=== PATIENT | male | born 1970 | race Asian ===

== ENCOUNTER → 2020-07-04 07:06 | Outpatient (CLI) | payer OTHER, SELFPAY ==
[2020-07-04 08:18] LABS: Hemoglobin A1C% w Est Avg Glu 5.4 % (4.0-6.0)
[2020-07-04 08:38] LABS: Cholesterol 220 mg/dL (140-199); HDL Cholesterol 34 mg/dL (40-60); LDL Cholesterol Calculated 134 mg/dL (<100); Triglycerides 260 mg/dL (35-150)
== END ==
PROVIDERS: PCP Family Medicine; Referring Provider Family Medicine; Visit Provider Family Medicine
DX: R73.9 Hyperglycemia, unspecified (principal); Z13.220 Encounter for screening for lipoid disorders
CPT/HCPCS: 36415; 80061; 83036

== ENCOUNTER → 2021-09-12 07:00 | Outpatient (CLI) | payer OTHER, SELFPAY ==
[2021-09-12 08:38] LABS: Hemoglobin A1C% w Est Avg Glu 5.6 % (4.0-6.0)
[2021-09-12 08:51] LABS: Alanine Aminotransferase 25 IU/L (<50); Albumin 4.5 g/dL (3.5-5.0); Albumin Globulin Ratio 1.6 (1.0-2.8); Alkaline Phosphatase 59 U/L (38-126); Aspartate Aminotransferase 22 IU/L (17-59); BUN Creatinine Ratio 12.8 (6-22); Bilirubin Total 0.6 mg/dL (0.2-1.3); Blood Urea Nitrogen 14 mg/dL (9-20); Carbon Dioxide 29 mmol/L (22-32); Chloride 106 mmol/L (98-107); Cholesterol 188 mg/dL (140-199); Estimated Glomerular Filt Rate > 60 mL/min (>60); Globulin 2.8 g/dL (1.7-4.1); Glucose 95 mg/dL (70-100); HDL Cholesterol 30 mg/dL (40-60); HEMOLYSIS < 15 (0-50); LDL Cholesterol Calculated 109 mg/dL (<100); Sodium 141 mmol/L (137-145); Total Protein 7.3 g/dL (6.3-8.2); Triglycerides 247 mg/dL (35-150)
== END ==
PROVIDERS: PCP Family Medicine; Referring Provider Family Medicine; Visit Provider Family Medicine
DX: E78.6 Lipoprotein deficiency (principal); Z13.1 Encounter for screening for diabetes mellitus
CPT/HCPCS: 36415; 80053; 80061; 83036

== ENCOUNTER → 2021-09-14 08:50 | Outpatient (CLI) | payer OTHER, SELFPAY ==
[2021-09-18 15:51] LABS: Fecal Immunochemical Test Negative (Negative)
== END ==
PROVIDERS: PCP Family Medicine; Referring Provider Family Medicine; Visit Provider Family Medicine
DX: Z12.11 Encounter for screening for malignant neoplasm of colon (principal)
CPT/HCPCS: 82274

== ENCOUNTER → 2022-01-04 07:19 | Outpatient (CLI) | payer OTHER, SELFPAY ==
[2022-01-04 08:32] LABS: Uric Acid 8.8 mg/dL (3.5-8.5)
[2022-01-04 08:45] LABS: Hemoglobin A1C% w Est Avg Glu 5.5 % (4.0-6.0)
== END ==
PROVIDERS: PCP Family Medicine; Referring Provider Physician Assistant; Visit Provider Physician Assistant
DX: E78.1 Pure hyperglyceridemia (principal); R73.9 Hyperglycemia, unspecified; Z87.39 Personal history of other diseases of the musculoskeletal system and connective tissue
CPT/HCPCS: 36415; 83036; 84550

== ENCOUNTER → 2022-01-05 16:13 | Outpatient (CLI) | payer OTHER, SELFPAY ==
--- NOTE | 2022-01-05 16:15 | DI.RAD.S_ITS ---
PROCEDURE: XR THORACIC SPINE 3V INDICATIONS: mid thoracic back pain x 1-2 years TECHNIQUE: 3 views of the thoracic spine were acquired. COMPARISON: None. FINDINGS: Bones: Mild anterior wedge shaped height loss at T10 shows less than 5 percent height loss anteriorly. No suspicious bony lesions. 12 pairs of ribs are noted, and appear intact where visualized. Soft tissues: No paravertebral stripe thickening. IMPRESSION: Minimal T10 wedge-shaped compression fracture , uncertain age Approved by: Rubén Rodriguez M.D. on 01/05/2022 at 17:41
== END ==
PROVIDERS: PCP Family Medicine; Referring Provider Physician Assistant; Visit Provider Physician Assistant
DX: M54.6 Pain in thoracic spine (principal)
CPT/HCPCS: 72072

== ENCOUNTER → 2022-09-03 07:19 | Outpatient (CLI) | payer OTHER, SELFPAY ==
[2022-09-03 09:17] LABS: Add Manual Diff / Slide Review NO; Basophils Absolute Auto 100 /uL (0-100); Basophils Percent Auto 1.7 % (0-2); Eosinophils Absolute Auto 100 /uL (0-450); Eosinophils Percent Auto 1.9 % (2-4); Hematocrit 44.6 % (41-53); Hemoglobin 15.5 g/dL (13.5-17.5); Lymphocytes Absolute Auto 2200 /uL (1100-4500); Lymphocytes Percent Auto 35.5 % (25-40); Mean Corpuscular HGB Conc 34.7 % (30-36); Mean Corpuscular Hemoglobin 28.7 PG (26-34); Mean Corpuscular Volume 82.9 fL (80-100); Monocytes Absolute Auto 400 /uL (0-900); Monocytes Percent Auto 6.8 % (3-14); Neutrophils Absolute Auto 3300 /uL (1500-7000); Neutrophils Percent Auto 54.1 % (50-75); Platelet Count 231 X10^3/uL (150-400); Red Blood Cell Count 5.38 X10^6/uL (4.5-5.9); Red Cell Distribution Width 13.4 % (11.6-14.8); White Blood Cell Count 6.2 X10^3/uL (4.5-11.0)
[2022-09-03 09:59] LABS: Alanine Aminotransferase 34 IU/L (<50); Albumin 4.5 g/dL (3.5-5.0); Albumin Globulin Ratio 1.2 (1.0-2.8); Alkaline Phosphatase 70 U/L (38-126); Aspartate Aminotransferase 26 IU/L (17-59); BUN Creatinine Ratio 15.4 (6-22); Bilirubin Total 0.5 mg/dL (0.2-1.3); Blood Urea Nitrogen 16 mg/dL (9-20); Calcium 9.3 mg/dL (8.4-10.2); Carbon Dioxide 30 mmol/L (22-32); Chloride 101 mmol/L (98-107); Cholesterol 224 mg/dL (140-199); Estimated Glomerular Filt Rate > 60 mL/min (>60); Globulin 3.8 g/dL (1.7-4.1); Glucose 98 mg/dL (70-100); HDL Cholesterol 29 mg/dL (40-60); HEMOLYSIS < 15 (0-50); Potassium 3.8 mmol/L (3.4-5.1); Sodium 140 mmol/L (137-145); Total Protein 8.3 g/dL (6.3-8.2); Triglycerides 487 mg/dL (35-150)
[2022-09-03 10:01] LABS: Creatinine Urine Random 87.8 mg/dL
[2022-09-03 10:02] LABS: Microalbumi Creatinin Ratio Ur 9.1 ug/mg CR (<30); Microalbumin Urine Random 0.8 mg/dL (0-1.6)
[2022-09-03 10:29] LABS: TSH w/ Reflex to FT4 1.04 uIU/mL (0.47-4.68)
[2022-09-04 06:37] LABS: x Labcorp Estim. Avg Glu (eAG) 117 mg/dL (.); x Labcorp Hemoglobin A1c 5.7 % (4.8-5.6)
== END ==
PROVIDERS: PCP Family Medicine; Referring Provider Family Medicine; Visit Provider Family Medicine
DX: E78.5 Hyperlipidemia, unspecified (principal); Z13.29 Encounter for screening for other suspected endocrine disorder; Z13.1 Encounter for screening for diabetes mellitus; Z13.9 Encounter for screening, unspecified; Z87.39 Personal history of other diseases of the musculoskeletal system and connective tissue; I10 Essential (primary) hypertension; Z13.6 Encounter for screening for cardiovascular disorders; D64.9 Anemia, unspecified
CPT/HCPCS: 36415; 80053; 80061; 82043; 82570; 83036; 84443; 85025

== ENCOUNTER → 2022-09-13 19:23 | Outpatient (CLI) | payer OTHER, SELFPAY ==
--- NOTE | 2022-09-13 19:28 | DI.RAD.S_ITS ---
PROCEDURE: XR SHOULDER RT MIN 2V INDICATIONS: R shoulder pain TECHNIQUE: 3 views of the shoulder were acquired. COMPARISON: None. FINDINGS: Bones: No fractures or dislocations. There is mild lateral downsloping of the acromion. No suspicious bony lesions. Visualized ribs appear intact. Soft tissues: No suspicious soft tissue calcifications. IMPRESSION: 1. No acute bony abnormality. 2. Mild lateral downsloping of the acromion may be associated with rotator cuff tearing. Consider further evaluation with MRI. Dictated by: Rufino Zarate M.D. on 09/14/2022 at 0:02 Approved by: Rufino Zarate M.D. on 09/14/2022 at 0:03
== END ==
PROVIDERS: PCP Family Medicine; Referring Provider Family Medicine; Visit Provider Family Medicine
DX: M25.511 Pain in right shoulder (principal)
CPT/HCPCS: 73030

== ENCOUNTER → 2022-09-19 08:53 | Outpatient (CLI) | payer OTHER, SELFPAY ==
[2022-09-20 16:57] LABS: Fecal Immunochemical Test Negative (Negative)
== END ==
PROVIDERS: PCP Family Medicine; Referring Provider Family Medicine; Visit Provider Family Medicine
DX: Z12.11 Encounter for screening for malignant neoplasm of colon (principal)
CPT/HCPCS: 82274

== ENCOUNTER 2022-11-11 12:35 | Emergency (ER) | payer OTHER, SELFPAY ==
[2022-11-11] VITALS (7 sets, daily range): BP systolic 139–157; BP diastolic 86–97; PULSE 71–89; RESP 13–22; TEMP 36.4; O2SAT 96–99
--- NOTE | 2022-11-11 12:59 | DI.RAD.S_ITS ---
PROCEDURE: XR CHEST 1V INDICATIONS: chest pain TECHNIQUE: One view of the chest was acquired. COMPARISON: None. FINDINGS: Surgical changes and devices: None. Lungs and pleura: Lungs are clear. No pleural effusions or pneumothorax. Mediastinum: Mediastinal contours appear normal. Heart size is normal. Bones and chest wall: No suspicious bony lesions. Overlying soft tissues appear unremarkable. IMPRESSION: No evidence acute pulmonary process. Dictated by: Alex Banegas M.D. on 11/11/2022 at 13:45 Approved by: Alex Banegas M.D. on 11/11/2022 at 13:46
--- NOTE | 2022-11-11 13:08 | ED.GENADULT ---
HPI - General Adult General Chief complaint: Chest Pain Stated complaint: chest pressure/arythmia t-5 Time Seen by Provider: 11/11/22 12:58 Source: patient Mode of arrival: Ambulatory Limitations: language barrier History of Present Illness HPI narrative: 52-year-old male. Is [place] speaking. Does speak some Faroese. Translation line was used. Is here for evaluation of 7-10 days of was initially described as chest pressure but then further discussion it seems to be more of a shortness of breath. No coughing. It does seem to come and go. He also describes other symptoms which sound like palpitations. No nausea or vomiting. Has never had anything like this in the past. No lower extremity swelling. No nausea or vomiting. No headache. No fevers. Has not tried anything for the symptoms prior to arrival. Related Data Previous Rx's Medication Instructions Recorded ibuprofen 800 mg tablet 800 mg PO BID PRN pain #60 tabs 09/12/21 simvastatin 20 mg tablet 20 mg PO BEDTIME #90 tabs 09/13/22 Allergies Allergy/AdvReac Type Severity Reaction Status Date / Time No Known Drug Allergies Allergy Verified 11/11/22 13:16 Review of Systems Constitutional Constitutional: Reports system reviewed and no additional complaints, except as documented Cardiovascular Cardiovascular: Reports system reviewed and no additional complaints, except as documented Respiratory Respiratory: Reports system reviewed and no additional complaints, except as documented Gastrointestinal Gastrointestinal: Reports system reviewed and no additional complaints, except as documented Musculoskeletal Musculoskeletal: Reports system reviewed and no additional complaints, except as documented Integumentary/Breasts Skin/Breast: Reports system reviewed and no additional complaints, except as documented Neurologic Neurologic: Reports system reviewed and no additional complaints, except as documented Hematologic/Lymphatic On Anticoagulants: No Patient History Social History Smoking Status: Never smoker Smoking Status: Never smoker Exam Initial Vital Signs Initial Vital Signs: Vital Signs Pulse Rate 85 11/11/22 12:54 Pulse Oximetry 97 11/11/22 12:54 Const General: cooperative, comfortable and No ill appearing HENMT Head: normal to inspection and normocephalic Chest Chest: No crepitus and No tenderness Resp Effort & Inspection: normal respiratory effort and not labored Auscultation: clear to auscultation bilaterally Cardio Rate: regular rate Rhythm: regular rhythm GI Palpation: soft and No tender Skin General: no rashes or lesions noted Neuro General: patient alert, patient awake, patient oriented x3 and moves all extremities Speech: speech normal Extrem General: normal to inspection and capillary refill normal Scores HEART Score Heart Score history: Slightly Suspicious Heart Score EKG: Normal Heart Score Age: 45-64 years old Heart Score risk factors: No known risk factors Heart Score troponin: < or = to normal limit Heart Score Total: 1 Course Orders Ordered: ED Orders 11/11/22 12:59 XR chest 1V Stat EKG-12 Lead Stat 11/11/22 13:00 Complete Blood Count AUTO DIFF Stat Comprehensive Metabolic Panel Stat D Dimer Stat Lipase Stat Troponin & CK Cardiac Panel Stat Discontinued Medications Aspirin (Aspirin 81 Mg Chew Tab) 324 mg PO NOW ONE Stop: 11/11/22 13:09 Vital Signs Vital signs: Vital Signs - 8 hr 11/11/22 12:58 11/11/22 12:54 11/11/22 12:55 Temperature 97.5 F L Pulse Rate 81 85 87 Respiratory Rate 16 Blood Pressure 157/91 H Pulse Oximetry 96 97 97 Oxygen Delivery Method Room Air 11/11/22 12:55 11/11/22 13:00 11/11/22 13:00 Temperature Pulse Rate 82 Respiratory Rate 21 Blood Pressure 157/91 H 156/97 H Pulse Oximetry 97 Oxygen Delivery Method Medical Decision Making Lab Data 11/11/22 13:00 11/11/22 13:00 Labs: Lab Results 11/11/22 11/11/22 11/11/22 Range/Units 13:00 13:00 13:00 WBC 6.0 (4.5-11.0) X10^3/uL RBC 5.55 (4.5-5.9) X10^6/uL Hgb 15.8 (13.5-17.5) g/dL Hct 45.8 (41-53) % MCV 82.5 (80-100) fL MCH 28.5 (26-34) PG MCHC 34.5 (30-36) % RDW 13.1 (11.6-14.8) % Plt Count 245 (150-400) X10^3/uL Neut % (Auto) 47.7 L (50-75) % Lymph % (Auto) 41.3 H (25-40) % [place] % (Auto) 7.3 (3-14) % Eos % (Auto) 2.4 (2-4) % Baso % (Auto) 1.3 (0-2) % Neut # (Auto) 2900 (3756-9207) /uL Lymph # (Auto) 2500 (7184-7240) /uL [place] # (Auto) 400 (0-900) /uL Eos # (Auto) 100 (0-450) /uL Baso # (Auto) 100 (0-100) /uL D-Dimer (<500) ng/ml Sodium 141 (137-145) mmol/L Potassium 3.8 (3.4-5.1) mmol/L Chloride 101 (98-107) mmol/L Carbon Dioxide 28 (22-32) mmol/L BUN 15 (9-20) mg/dL Creatinine 0.99 (0.66-1.25) mg/dL Estimated GFR > 60 (>60) mL/min BUN/Creatinine Ratio 15.2 (6-22) Glucose 100 (70-100) mg/dL Calcium 9.6 (8.4-10.2) mg/dL Total Bilirubin 0.5 (0.2-1.3) mg/dL AST 32 (17-59) IU/L ALT 44 (<50) IU/L Alkaline Phosphatase 92 (38-126) U/L Total Creatine Kinase 129 (55-170) U/L CK-MB (CK-2) TNP CK-MB (CK-2) Rel Index TNP Troponin I < 0.012 (0.01-0.034) ng/mL Total Protein 8.7 H (6.3-8.2) g/dL Albumin 5.1 H (3.5-5.0) g/dL Globulin 3.6 (1.7-4.1) g/dL Albumin/Globulin Ratio 1.4 (1.0-2.8) Lipase 408 H (23-300) U/L 11/11/22 Range/Units 13:00 WBC (4.5-11.0) X10^3/uL RBC (4.5-5.9) X10^6/uL Hgb (13.5-17.5) g/dL Hct (41-53) % MCV (80-100) fL MCH (26-34) PG MCHC (30-36) % RDW (11.6-14.8) % Plt Count (150-400) X10^3/uL Neut % (Auto) (50-75) % Lymph % (Auto) (25-40) % [place] % (Auto) (3-14) % Eos % (Auto) (2-4) % Baso % (Auto) (0-2) % Neut # (Auto) (6154-8406) /uL Lymph # (Auto) (1563-2564) /uL [place] # (Auto) (0-900) /uL Eos # (Auto) (0-450) /uL Baso # (Auto) (0-100) /uL D-Dimer < 215 (<500) ng/ml Sodium (137-145) mmol/L Potassium (3.4-5.1) mmol/L Chloride (98-107) mmol/L Carbon Dioxide (22-32) mmol/L BUN (9-20) mg/dL Creatinine (0.66-1.25) mg/dL Estimated GFR (>60) mL/min BUN/Creatinine Ratio (6-22) Glucose (70-100) mg/dL Calcium (8.4-10.2) mg/dL Total Bilirubin (0.2-1.3) mg/dL AST (17-59) IU/L ALT (<50) IU/L Alkaline Phosphatase (38-126) U/L Total Creatine Kinase (55-170) U/L CK-MB (CK-2) CK-MB (CK-2) Rel Index Troponin I (0.01-0.034) ng/mL Total Protein (6.3-8.2) g/dL Albumin (3.5-5.0) g/dL Globulin (1.7-4.1) g/dL Albumin/Globulin Ratio (1.0-2.8) Lipase (23-300) U/L Imaging Data Chest x-ray: Radiologist's Impression: ROCEDURE:? XR CHEST 1V ? INDICATIONS:? chest pain ? TECHNIQUE:? One view of the chest was acquired.? ? COMPARISON:? None. ? FINDINGS:? ? Surgical changes and devices:? None.? ? Lungs and pleura:? Lungs are clear.? No pleural effusions or pneumothorax.? ? Mediastinum:? Mediastinal contours appear normal.? Heart size is normal.? ? Bones and chest wall:? No suspicious bony lesions.? Overlying soft tissues appear unremarkable.? ? IMPRESSION:? No evidence acute pulmonary process. ECG Data Attestation: I personally reviewed and interpreted this ECG as follows: Interpretation: Sinus rhythm Ventricular rate 83 Normal QRS Normal QTC No ST T wave changes MDM Narrative Medical decision making narrative: Patient has a low risk heart score. EKG is unremarkable. Chest x-ray is unremarkable. D-dimer is negative. Troponin is negative. I have low suspicion that this is ACS. I have a higher suspicion that his symptoms are related to the PVCs that he is having and being nervous about these. I had an extensive discussion with him regarding this. Will have him contact his primary doctor for a follow-up. He was given return precautions and follow-up instructions. He expressed understanding and agreement with plan. Discharge Plan Departure Patient Disposition: Home Clinical Impression: Premature ventricular contractions Activity Restrictions/Additional Instructions: I recommend that you contact your primary care doctor for a follow-up. Return to the emergency department for new or worsening symptoms. Prescriptions: No Action ibuprofen 800 mg tablet 800 mg PO BID PRN (Reason: pain) Qty: 60 0RF simvastatin 20 mg tablet 20 mg PO BEDTIME Qty: 90 3RF Referrals: Nirmala Wei MD [Primary Care Provider] - Stand Alone Forms: Patient Portal/API
[2022-11-11 13:14] LABS: Add Manual Diff / Slide Review NO; Basophils Absolute Auto 100 /uL (0-100); Basophils Percent Auto 1.3 % (0-2); Eosinophils Absolute Auto 100 /uL (0-450); Eosinophils Percent Auto 2.4 % (2-4); Hematocrit 45.8 % (41-53); Hemoglobin 15.8 g/dL (13.5-17.5); Lymphocytes Absolute Auto 2500 /uL (1100-4500); Lymphocytes Percent Auto 41.3 % (25-40); Mean Corpuscular HGB Conc 34.5 % (30-36); Mean Corpuscular Hemoglobin 28.5 PG (26-34); Mean Corpuscular Volume 82.5 fL (80-100); Monocytes Absolute Auto 400 /uL (0-900); Monocytes Percent Auto 7.3 % (3-14); Neutrophils Absolute Auto 2900 /uL (1500-7000); Neutrophils Percent Auto 47.7 % (50-75); Platelet Count 245 X10^3/uL (150-400); Red Blood Cell Count 5.55 X10^6/uL (4.5-5.9); Red Cell Distribution Width 13.1 % (11.6-14.8)
[2022-11-11 13:25] LABS: Alanine Aminotransferase 44 IU/L (<50); Albumin 5.1 g/dL (3.5-5.0); Alkaline Phosphatase 92 U/L (38-126); Aspartate Aminotransferase 32 IU/L (17-59); BUN Creatinine Ratio 15.2 (6-22); Bilirubin Total 0.5 mg/dL (0.2-1.3); Blood Urea Nitrogen 15 mg/dL (9-20); Calcium 9.6 mg/dL (8.4-10.2); Carbon Dioxide 28 mmol/L (22-32); Chloride 101 mmol/L (98-107); Creatine Kinase 129 U/L (55-170); Estimated Glomerular Filt Rate > 60 mL/min (>60); Glucose 100 mg/dL (70-100); HEMOLYSIS < 15 (0-50); Lipase 408 U/L (23-300); Potassium 3.8 mmol/L (3.4-5.1); Sodium 141 mmol/L (137-145); Total Protein 8.7 g/dL (6.3-8.2)
[2022-11-11 13:26] LABS: Albumin Globulin Ratio 1.4 (1.0-2.8); Globulin 3.6 g/dL (1.7-4.1)
[2022-11-11 13:34] LABS: D Dimer < 215 ng/ml (<500)
[2022-11-11 13:37] LABS: Troponin I < 0.012 ng/mL (0.01-0.034)
== END 2022-11-11 14:25 | disposition home or self-care (01) ==
PROVIDERS: Emergency Provider Emergency Medicine; Family Provider Family Medicine; PCP Family Medicine
DX: I49.3 Ventricular premature depolarization (principal)
CPT/HCPCS: 36415; 71045; 80053; 82550; 83690; 84484; 85025; 85379; 93005; 93010; 99284

== ENCOUNTER → 2022-12-02 07:07 | Outpatient (CLI) | payer OTHER, SELFPAY ==
[2022-12-02 08:25] LABS: Cholesterol 154 mg/dL (140-199); HDL Cholesterol 34 mg/dL (40-60); LDL Cholesterol Calculated 50 mg/dL (<100); Triglycerides 351 mg/dL (35-150)
[2022-12-03 02:07] LABS: x Labcorp Estim. Avg Glu (eAG) 111 mg/dL (.); x Labcorp Hemoglobin A1c 5.5 % (4.8-5.6)
== END ==
PROVIDERS: Family Provider Family Medicine; PCP Family Medicine; Referring Provider Physician Assistant; Visit Provider Physician Assistant
DX: E78.2 Mixed hyperlipidemia (principal); R73.01 Impaired fasting glucose
CPT/HCPCS: 36415; 80061; 83036

== ENCOUNTER 2022-12-06 12:15 | Outpatient (RCR) | payer OTHER, SELFPAY ==
--- NOTE | 2022-10-25 17:23 | PT.OIE ---
Current Diagnoses Pain in right shoulder (10/25/22) Unspecified disorder of synovium and tendon, unspecified shoulder (10/25/22) Bicipital tendinitis, right shoulder (10/25/22) Visit Care Team Role Provider Type Nirmala Wei MD Attending Provider Physician Family Provider Primary Care Provider Referring Provider Specialty: Family Practice Address: [address] [place] [address], [id number] Email: [email or web address] Physical Therapy Initial Evaluation PT-OP-A Visit Information Start: 10/25/22 16:49 Freq: Status: Active Protocol: Document 10/25/22 12:15 DCW (Rec: 10/25/22 17:23 DCW [id number]) Out-Patient Physical Therapy Visit Information Visit Information Visit Type Initial Evaluation Visit Start Time 12:15 Visit Stop Time 12:55 Total Visit Minutes 40 Visit Number 1 Number of PREDATOR CONTROL TRAPPER Visits 0 Evaluation Information Evaluation Date 10/25/22 PT-OP-B Current Condition Start: 10/25/22 16:49 Freq: Status: Active Protocol: Document 10/25/22 12:15 DCW (Rec: 10/25/22 17:23 DCW [id number]) Current Condition History of Current Condition Onset Date ~17 year history Current Complaints Recurrent R shoulder pain History of Current Condition Pt is a 52 year old male presenting with a ~17 year history of right shoulder pain . Pt reports he is unsure of the initial injury, but seems to remember he used to do a lot of dynamic stretching where he would swing his arms in full circles up over his head and back into extension for 100+ repetitions. Notes that a week or so after doing this one time, he began to have right shoulder pain. Prior to moving away, he went to see a jukebox routeman, and notes that it helped his pain for ~10 years. After moving to the , he began having increased pain ~5 years ago, and saw his PCP, who gave him some anti-inflammatories, which again seemed to help long-term. Just recently, he has had a return of the pain, and it was suggested that he get an x-ray and try some skilled PT. Pts biggest complaints are pain in his anterior right shoulder, specifically when reaching upp overhead and then reaching back into more of an extension /external rotation, as well as when sleeping and rolling onto his right shoulder, it hurts for about five minutes, then it's fine. Pt also notes an occasional popping or snapping sound in his anterior shoulder. 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 Prior Treatments and Tests R shoulder x-ray: IMPRESSION: 1. No acute bony abnormality. 2. Mild lateral downsloping of the acromion may be associated with rotator cuff tearing. Consider further evaluation with MRI. per Rufino Zarate M.D. on 2022 Treatment Goals Patient/Caregiver Goals Decrease shoulder pain PT-OP-C Subjective Start: 10/25/22 16:49 Freq: Status: Active Protocol: Document 10/25/22 12:15 DCW (Rec: 10/25/22 17:23 DCW [id number]) Patient Questionnaires Quick Dash- Upper Extremity Quick Dash UE Score 20.45% Quick Dash UE Impairment 20 to 39% Impaired (Score 20- 39) OP-PT Pain Assessment Location Right Anterior Shoulder Intensity 2 Scale Used Numeric (0 - 10) PT-OP-F Manual Assessment Start: 10/25/22 16:49 Freq: Status: Active Protocol: Document 10/25/22 12:15 DCW (Rec: 10/25/22 17:23 DCW [id number]) Manual Assessments Soft Tissue Assessment Soft Tissue Mobility Assessment Point-specific tenderness 3/4: wincing and withdraw at right bicipital groove PT-OP-K Range of Motion Start: 10/25/22 16:49 Freq: Status: Active Protocol: Document 10/25/22 12:15 DCW (Rec: 10/25/22 17:23 DCW [id number]) Shoulder Goniometric Range of Motion Shoulder Right Active Testing Position Sitting Flexion 142 Extension 50 Abduction 138 External Rotation at 0 degrees Abduction 55 PT-OP-L Special Tests Start: 10/25/22 16:49 Freq: Status: Active Protocol: Document 10/25/22 12:15 DCW (Rec: 10/25/22 17:23 DCW [id number]) Special Tests Shoulder Special Tests Yergason's Biceps Test Results Positive Right Speed's Biceps Test Results Positive Right Passive ER Rotator Cuff Test Results Negative [place] Paras Impingement Test Results Negative Grind Labrum Test Results Negative Empty Can Test Results Negative Drop Arm Rotator Cuff Test Results Negative Belly Press Test Results Negative Apprehension Test Test Results Negative AC Joint Compression Test Results Negative PT-OP-M Strength Start: 10/25/22 16:49 Freq: Status: Active Protocol: Document 10/25/22 12:15 DCW (Rec: 10/25/22 17:23 DCW [id number]) Shoulder Strength Shoulder Manual Muscle Testing Right Flexion 5 Normal Abduction (C5) 5 Normal Adduction 5 Normal External Rotation 4+ Good+ Internal Rotation 5 Normal Comments Pain with resisted ER Left Flexion 5 Normal Abduction (C5) 5 Normal Adduction 5 Normal External Rotation 5 Normal Internal Rotation 5 Normal PT-OP-Q Treatments Start: 10/25/22 16:49 Freq: Status: Active Protocol: Document 10/25/22 12:15 DCW (Rec: 10/25/22 17:23 DCW [id number]) Manual Therapy Treatment Taping Bicipital taping Body Location R LH biceps Treatment Focus LH biceps tendon stabilization Type of Tape Kinesio Tape PT-OP-T Assessment and Plan Start: 10/25/22 16:49 Freq: Status: Active Protocol: Document 10/25/22 12:15 DCW (Rec: 10/25/22 17:23 DCW [id number]) Physical Therapy Assessment Assessment Summary Assessment Pt presents with signs and symptoms consistent with bicipital tendonitis, with the potential of a torn/lax transverse ligament over his bicipital groove. Pt's pain is very point specific along his LH biceps tendon, and there is a fairly palpable popping out of his LH tendon during Yergason test and when he performs his motion of reaching up overhead and then into extension/external rotation. Yergason's/Speed's biceps testing positive today, no other special testing resulted in pain or symptoms. Overall good strength, some limitation in R shoulder ROM, flexion limited to 142? and abduction to 138?. Pt should benefit from skilled therapy focusing on shoulder stabilization, decreasing inflammation, improving pain levels, as well as use of tape and modalities. If pt does not progress as expected, may benefit from further advanced imaging in order to rule in/ out underlying soft tissue damage. Physical Therapy Plan Frequency and Duration Frequency of Treatment 1x/Week Plan of Care Start Date 10/25/22 Plan of Care End Date 12/06/22 Therapeutic Interventions Therapeutic Interventions Home Exercise Program,Joint Mobilizations,Manual Therapy, Patient/Caregiver Education, Self-Care/Home Management,Soft Tissue Mobilization,Taping, Therapeutic Activities, Therapeutic Exercises Modalities Cold Pack/Ice Massage,Hot Packs,Infrared Therapy, Iontophoresis,Ultrasound Other Therapeutic Interventions Iontophoresis with Dexamethasone 4 mg/mL Next Visit Focus/Plan Next Note Type Treatment Note Next Visit Plan Taping, shoulder stabilization /strengthening, Ionto
--- NOTE | 2022-10-25 17:26 | PT.OIE ---
Current Diagnoses Pain in right shoulder (10/25/22) Unspecified disorder of synovium and tendon, unspecified shoulder (10/25/22) Bicipital tendinitis, right shoulder (10/25/22) Visit Care Team Role Provider Type Nirmala Wei MD Attending Provider Physician Family Provider Primary Care Provider Referring Provider Specialty: Family Practice Address: [address] [place] [address], [id number] Email: [email or web address] Physical Therapy Initial Evaluation PT-OP-A Visit Information Start: 10/25/22 16:49 Freq: Status: Active Protocol: Document 10/25/22 12:15 DCW (Rec: 10/25/22 17:23 DCW [id number]) Out-Patient Physical Therapy Visit Information Visit Information Visit Type Initial Evaluation Visit Start Time 12:15 Visit Stop Time 12:55 Total Visit Minutes 40 Visit Number 1 Number of DATABASE TESTER Visits 0 Evaluation Information Evaluation Date 10/25/22 PT-OP-B Current Condition Start: 10/25/22 16:49 Freq: Status: Active Protocol: Document 10/25/22 12:15 DCW (Rec: 10/25/22 17:23 DCW [id number]) Current Condition History of Current Condition Onset Date ~17 year history Current Complaints Recurrent R shoulder pain History of Current Condition Pt is a 52 year old male presenting with a ~17 year history of right shoulder pain . Pt reports he is unsure of the initial injury, but seems to remember he used to do a lot of dynamic stretching where he would swing his arms in full circles up over his head and back into extension for 100+ repetitions. Notes that a week or so after doing this one time, he began to have right shoulder pain. Prior to moving away, he went to see a longwall headgate operator, and notes that it helped his pain for ~10 years. After moving to the , he began having increased pain ~5 years ago, and saw his PCP, who gave him some anti-inflammatories, which again seemed to help long-term. Just recently, he has had a return of the pain, and it was suggested that he get an x-ray and try some skilled PT. Pts biggest complaints are pain in his anterior right shoulder, specifically when reaching upp overhead and then reaching back into more of an extension /external rotation, as well as when sleeping and rolling onto his right shoulder, it hurts for about five minutes, then it's fine. Pt also notes an occasional popping or snapping sound in his anterior shoulder. 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 Prior Treatments and Tests R shoulder x-ray: IMPRESSION: 1. No acute bony abnormality. 2. Mild lateral downsloping of the acromion may be associated with rotator cuff tearing. Consider further evaluation with MRI. per Rufino Zarate M.D. on 2022 Treatment Goals Patient/Caregiver Goals Decrease shoulder pain PT-OP-C Subjective Start: 10/25/22 16:49 Freq: Status: Active Protocol: Document 10/25/22 12:15 DCW (Rec: 10/25/22 17:23 DCW [id number]) Patient Questionnaires Quick Dash- Upper Extremity Quick Dash UE Score 20.45% Quick Dash UE Impairment 20 to 39% Impaired (Score 20- 39) OP-PT Pain Assessment Location Right Anterior Shoulder Intensity 2 Scale Used Numeric (0 - 10) PT-OP-F Manual Assessment Start: 10/25/22 16:49 Freq: Status: Active Protocol: Document 10/25/22 12:15 DCW (Rec: 10/25/22 17:23 DCW [id number]) Manual Assessments Soft Tissue Assessment Soft Tissue Mobility Assessment Point-specific tenderness 3/4: wincing and withdraw at right bicipital groove PT-OP-K Range of Motion Start: 10/25/22 16:49 Freq: Status: Active Protocol: Document 10/25/22 12:15 DCW (Rec: 10/25/22 17:23 DCW [id number]) Shoulder Goniometric Range of Motion Shoulder Right Active Testing Position Sitting Flexion 142 Extension 50 Abduction 138 External Rotation at 0 degrees Abduction 55 PT-OP-L Special Tests Start: 10/25/22 16:49 Freq: Status: Active Protocol: Document 10/25/22 12:15 DCW (Rec: 10/25/22 17:23 DCW [id number]) Special Tests Shoulder Special Tests Yergason's Biceps Test Results Positive Right Speed's Biceps Test Results Positive Right Passive ER Rotator Cuff Test Results Negative [place] Paras Impingement Test Results Negative Grind Labrum Test Results Negative Empty Can Test Results Negative Drop Arm Rotator Cuff Test Results Negative Belly Press Test Results Negative Apprehension Test Test Results Negative AC Joint Compression Test Results Negative PT-OP-M Strength Start: 10/25/22 16:49 Freq: Status: Active Protocol: Document 10/25/22 12:15 DCW (Rec: 10/25/22 17:23 DCW [id number]) Shoulder Strength Shoulder Manual Muscle Testing Right Flexion 5 Normal Abduction (C5) 5 Normal Adduction 5 Normal External Rotation 4+ Good+ Internal Rotation 5 Normal Comments Pain with resisted ER Left Flexion 5 Normal Abduction (C5) 5 Normal Adduction 5 Normal External Rotation 5 Normal Internal Rotation 5 Normal PT-OP-Q Treatments Start: 10/25/22 16:49 Freq: Status: Active Protocol: Document 10/25/22 12:15 DCW (Rec: 10/25/22 17:23 DCW [id number]) Manual Therapy Treatment Taping Bicipital taping Body Location R LH biceps Treatment Focus LH biceps tendon stabilization Type of Tape Kinesio Tape PT-OP-T Assessment and Plan Start: 10/25/22 16:49 Freq: Status: Active Protocol: Document 10/25/22 12:15 DCW (Rec: 10/25/22 17:23 DCW [id number]) Physical Therapy Assessment Goals Two Impairment Pt experiences pain in right shoulder when rolling onto right side Benzene Washer Goal (LTG) Pt to exhibit ability to lay on right shoulder with no pain in order to improve ability to sleep at night LTG Duration 12/06/22 One Impairment Pt does not have an appropriate home exercise program Short Term Goal (STG) Pt to be independent and compliant with an appropriate HEP STG Duration 11/24/22 Assessment Summary Assessment Pt presents with signs and symptoms consistent with bicipital tendonitis, with the potential of a torn/lax transverse ligament over his bicipital groove. Pt's pain is very point specific along his LH biceps tendon, and there is a fairly palpable popping out of his LH tendon during Yergason test and when he performs his motion of reaching up overhead and then into extension/external rotation. Yergason's/Speed's biceps testing positive today, no other special testing resulted in pain or symptoms. Overall good strength, some limitation in R shoulder ROM, flexion limited to 142? and abduction to 138?. Pt should benefit from skilled therapy focusing on shoulder stabilization, decreasing inflammation, improving pain levels, as well as use of tape and modalities. If pt does not progress as expected, may benefit from further advanced imaging in order to rule in/ out underlying soft tissue damage. Physical Therapy Plan Frequency and Duration Frequency of Treatment 1x/Week Plan of Care Start Date 10/25/22 Plan of Care End Date 12/06/22 Therapeutic Interventions Therapeutic Interventions Home Exercise Program,Joint Mobilizations,Manual Therapy, Patient/Caregiver Education, Self-Care/Home Management,Soft Tissue Mobilization,Taping, Therapeutic Activities, Therapeutic Exercises Modalities Cold Pack/Ice Massage,Hot Packs,Infrared Therapy, Iontophoresis,Ultrasound Other Therapeutic Interventions Iontophoresis with Dexamethasone 4 mg/mL Next Visit Focus/Plan Next Note Type Treatment Note Next Visit Plan Taping, shoulder stabilization /strengthening, Ionto
--- NOTE | 2022-10-25 17:27 | PT.OPPOC ---
Physical, Occupational & Speech Therapy At [facility] Current Diagnoses Pain in right shoulder (10/25/22) Unspecified disorder of synovium and tendon, unspecified shoulder (10/25/22) Bicipital tendinitis, right shoulder (10/25/22) Visit Care Team Role Provider Type Nirmala Wei MD Attending Provider Physician Family Provider Primary Care Provider Referring Provider Specialty: Family Practice Address: [address] [place] [address], [facility] [place], [address] Email: [email or web address] Plan Of Care PT-OP-T Assessment and Plan Start: 10/25/22 16:49 Freq: Status: Active Protocol: Document 10/25/22 12:15 DCW (Rec: 10/25/22 17:23 DCW [id number]) Physical Therapy Assessment Goals Two Impairment Pt experiences pain in right shoulder when rolling onto right side Slag Dumper Goal (LTG) Pt to exhibit ability to lay on right shoulder with no pain in order to improve ability to sleep at night LTG Duration 12/06/22 One Impairment Pt does not have an appropriate home exercise program Short Term Goal (STG) Pt to be independent and compliant with an appropriate HEP STG Duration 11/24/22 Assessment Summary Assessment Pt presents with signs and symptoms consistent with bicipital tendonitis, with the potential of a torn/lax transverse ligament over his bicipital groove. Pt's pain is very point specific along his LH biceps tendon, and there is a fairly palpable popping out of his LH tendon during Yergason test and when he performs his motion of reaching up overhead and then into extension/external rotation. Yergason's/Speed's biceps testing positive today, no other special testing resulted in pain or symptoms. Overall good strength, some limitation in R shoulder ROM, flexion limited to 142? and abduction to 138?. Pt should benefit from skilled therapy focusing on shoulder stabilization, decreasing inflammation, improving pain levels, as well as use of tape and modalities. If pt does not progress as expected, may benefit from further advanced imaging in order to rule in/ out underlying soft tissue damage. Physical Therapy Plan Frequency and Duration Frequency of Treatment 1x/Week Plan of Care Start Date 10/25/22 Plan of Care End Date 12/06/22 Therapeutic Interventions Therapeutic Interventions Home Exercise Program,Joint Mobilizations,Manual Therapy, Patient/Caregiver Education, Self-Care/Home Management,Soft Tissue Mobilization,Taping, Therapeutic Activities, Therapeutic Exercises Modalities Cold Pack/Ice Massage,Hot Packs,Infrared Therapy, Iontophoresis,Ultrasound Other Therapeutic Interventions Iontophoresis with Dexamethasone 4 mg/mL Next Visit Focus/Plan Next Note Type Treatment Note Next Visit Plan Taping, shoulder stabilization /strengthening, Ionto Plan of Care Dates Plan of Care Start Date 10/25/22 Plan of Care End Date 12/06/22 Electronically Signed by: Wil Metcalf, PT 10/25/22 3710 If you are in agreement with this Plan of Care, please return a signed and dated copy. I have reviewed this Plan of Care and certify that the skilled therapy services above are required to meet the patient?s needs. Physician Signature Date Printed Name and Credentials Clinical Instructor Signature Printed Name and Credentials
--- NOTE | 2022-11-11 12:34 | PT-OP ANOTE ---
Pt's PCP notified this PT office of pt having chest symptoms per , and PCP recommendation for pt to go to Emergency for further evaluation. S/w pt (Arabic is second language) who describes episodes of shortness of breath since at least five days ago happening multiple times a day, and decreasing with meditation, but happened twice today. No symptoms at this moment - pt agrees to Net Repairer escort to ER. PT appointment cancelled accordingly. Pt did describe removing KT tape after 3 days due to 'itching but increased shoulder pain following removal. He denies any warmth, redness, or rash.
--- NOTE | 2022-11-11 15:33 | PT.OTN ---
Current Diagnoses Pain in right shoulder (11/11/22) Unspecified disorder of synovium and tendon, unspecified shoulder (11/11/22) Bicipital tendinitis, right shoulder (11/11/22) Physical Therapy Treatment Note PT-OP-A Visit Information Start: 10/25/22 16:49 Freq: Status: Active Protocol: Document 11/11/22 14:50 DCW (Rec: 11/11/22 15:32 DCW [id number]) Out-Patient Physical Therapy Visit Information Visit Information Visit Type Treatment Note Visit Start Time 14:50 Visit Stop Time 15:30 Total Visit Minutes 40 Visit Number 2 Number of VOCATIONAL REHAB CONSULTANT Visits 0 Evaluation Information Evaluation Date 10/25/22 PT-OP-B Current Condition Start: 10/25/22 16:49 Freq: Status: Active Protocol: Document 10/25/22 12:15 DCW (Rec: 10/25/22 17:23 DCW [id number]) Current Condition History of Current Condition Onset Date ~17 year history Current Complaints Recurrent R shoulder pain History of Current Condition Pt is a 52 year old male presenting with a ~17 year history of right shoulder pain . Pt reports he is unsure of the initial injury, but seems to remember he used to do a lot of dynamic stretching where he would swing his arms in full circles up over his head and back into extension for 100+ repetitions. Notes that a week or so after doing this one time, he began to have right shoulder pain. Prior to moving away, he went to see a laboratory technology teacher, and notes that it helped his pain for ~10 years. After moving to the , he began having increased pain ~5 years ago, and saw his PCP, who gave him some anti-inflammatories, which again seemed to help long-term. Just recently, he has had a return of the pain, and it was suggested that he get an x-ray and try some skilled PT. Pts biggest complaints are pain in his anterior right shoulder, specifically when reaching upp overhead and then reaching back into more of an extension /external rotation, as well as when sleeping and rolling onto his right shoulder, it hurts for about five minutes, then it's fine. Pt also notes an occasional popping or snapping sound in his anterior shoulder. 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 Prior Treatments and Tests R shoulder x-ray: IMPRESSION: 1. No acute bony abnormality. 2. Mild lateral downsloping of the acromion may be associated with rotator cuff tearing. Consider further evaluation with MRI. per Rufino Zarate M.D. on 2022 Treatment Goals Patient/Caregiver Goals Decrease shoulder pain PT-OP-C Subjective Start: 10/25/22 16:49 Freq: Status: Active Protocol: Document 11/11/22 14:50 DCW (Rec: 11/11/22 15:33 DCW [id number]) OP-PT Subjective Patient Comments Patient Comments Pt reports he felt better while wearing the K-tape, but it began to get itchy, so he removed it. PT-OP-F Manual Assessment Start: 10/25/22 16:49 Freq: Status: Active Protocol: Document 10/25/22 12:15 DCW (Rec: 10/25/22 17:23 DCW [id number]) Manual Assessments Soft Tissue Assessment Soft Tissue Mobility Assessment Point-specific tenderness 3/4: wincing and withdraw at right bicipital groove PT-OP-K Range of Motion Start: 10/25/22 16:49 Freq: Status: Active Protocol: Document 10/25/22 12:15 DCW (Rec: 10/25/22 17:23 DCW [id number]) Shoulder Goniometric Range of Motion Shoulder Right Active Testing Position Sitting Flexion 142 Extension 50 Abduction 138 External Rotation at 0 degrees Abduction 55 PT-OP-L Special Tests Start: 10/25/22 16:49 Freq: Status: Active Protocol: Document 10/25/22 12:15 DCW (Rec: 10/25/22 17:23 DCW [id number]) Special Tests Shoulder Special Tests Yergason's Biceps Test Results Positive Right Speed's Biceps Test Results Positive Right Passive ER Rotator Cuff Test Results Negative [place] Impingement Test Results Negative Grind Labrum Test Results Negative Empty Can Test Results Negative Drop Arm Rotator Cuff Test Results Negative Belly Press Test Results Negative Apprehension Test Test Results Negative AC Joint Compression Test Results Negative PT-OP-M Strength Start: 10/25/22 16:49 Freq: Status: Active Protocol: Document 10/25/22 12:15 DCW (Rec: 10/25/22 17:23 DCW [id number]) Shoulder Strength Shoulder Manual Muscle Testing Right Flexion 5 Normal Abduction (C5) 5 Normal Adduction 5 Normal External Rotation 4+ Good+ Internal Rotation 5 Normal Comments Pain with resisted ER Left Flexion 5 Normal Abduction (C5) 5 Normal Adduction 5 Normal External Rotation 5 Normal Internal Rotation 5 Normal PT-OP-Q Treatments Start: 10/25/22 16:49 Freq: Status: Active Protocol: Document 11/11/22 14:50 DCW (Rec: 11/11/22 15:32 DCW [id number]) Cardio Equipment Upper Body Ergometer (UBE) Duration (Minutes) 2 RPM 60 Seat Position 10 Height 2.5 Other R UE only d/t recent IV site on L arm Therapeutic Exercises Sitting Exercises Biceps curls Sitting Exercise Name Biceps curl Side right Resistance Green T-band ER/IR Sitting Exercise Name 90/90 ER/IR holding weighted ball Side right Resistance 3.3 lb Red ball Flexibar Sitting Exercise Name Sup/Pro /c flexibar Side bilateral Resistance Red Pro/Supination Sitting Exercise Name Pronation/Supination Side right Resistance Hammer Standing Exercises Biceps curls Standing Exercise Name Eccentric curl->Normal Curl Side right Resistance 5#->7# Manual Therapy Treatment Soft Tissue Mobilization LH Biceps Body Location LH Biceps tendon Mobilization Type Cross-Friction,Strumming Intensity/Depth Superficial Joint Mobilizations GH Joint R GH Direction Inferior Grade III PT-OP-R Modalities Start: 11/11/22 15:32 Freq: Status: Active Protocol: Document 11/11/22 14:50 DCW (Rec: 11/11/22 15:33 [facility] [id number]) Iontophoresis Treatment Right Anterior Shoulder Treatment Medication Dexamethasone (-) Medication Amount (mL) (ml) 1 Medication Dosage 4 mg/mL Treatment Polarity Negative to Negative Active Electrode Placement Bicipital groove Treatment Duration (minutes) 3 PT-OP-T Assessment and Plan Start: 10/25/22 16:49 Freq: Status: Active Protocol: Document 11/11/22 14:50 DCW (Rec: 11/11/22 15:32 [facility] [id number]) Physical Therapy Assessment Goals Two Impairment Pt experiences pain in right shoulder when rolling onto right side Care Home Goal (LTG) Pt to exhibit ability to lay on right shoulder with no pain in order to improve ability to sleep at night LTG Duration 12/06/22 One Impairment Pt does not have an appropriate home exercise program Short Term Goal (STG) Pt to be independent and compliant with an appropriate HEP STG Duration 11/24/22 Assessment Summary Assessment Pt tolerated most activities today without pain, but did not increased pain with pronation/supination activities, as well as increased overall soreness after STM. Trial of ionto today, pt instructed to let therapist know how he felt after it comes off. Physical Therapy Plan Frequency and Duration Frequency of Treatment 1x/Week Plan of Care Start Date 10/25/22 Plan of Care End Date 12/06/22 Therapeutic Interventions Therapeutic Interventions Home Exercise Program,Joint Mobilizations,Manual Therapy, Patient/Caregiver Education, Self-Care/Home Management,Soft Tissue Mobilization,Taping, Therapeutic Activities, Therapeutic Exercises Modalities Cold Pack/Ice Massage,Hot Packs,Infrared Therapy, Iontophoresis,Ultrasound Other Therapeutic Interventions Iontophoresis with Dexamethasone 4 mg/mL Next Visit Focus/Plan Next Note Type Treatment Note Next Visit Plan Taping, shoulder stabilization /strengthening, Ionto
--- NOTE | 2022-11-22 15:34 | PT.OTN ---
Current Diagnoses Pain in right shoulder (11/22/22) Unspecified disorder of synovium and tendon, unspecified shoulder (11/22/22) Bicipital tendinitis, right shoulder (11/22/22) Physical Therapy Treatment Note PT-OP-A Visit Information Start: 10/25/22 16:49 Freq: Status: Active Protocol: Document 11/22/22 14:18 NBM (Rec: 11/22/22 15:33 NBM [id number]) Out-Patient Physical Therapy Visit Information Visit Information Visit Type Treatment Note Visit Note Pt's translation jennifer used for Urdu<>[place] Islander for pain description. Visit Start Time 14:18 Visit Stop Time 15:03 Total Visit Minutes 45 Visit Number 3 Number of PSYCHIATRY PHYSICIAN Visits 1 Evaluation Information Evaluation Date 10/25/22 PT-OP-B Current Condition Start: 10/25/22 16:49 Freq: Status: Active Protocol: Document 10/25/22 12:15 DCW (Rec: 10/25/22 17:23 DCW [id number]) Current Condition History of Current Condition Onset Date ~17 year history Current Complaints Recurrent R shoulder pain History of Current Condition Pt is a 52 year old male presenting with a ~17 year history of right shoulder pain . Pt reports he is unsure of the initial injury, but seems to remember he used to do a lot of dynamic stretching where he would swing his arms in full circles up over his head and back into extension for 100+ repetitions. Notes that a week or so after doing this one time, he began to have right shoulder pain. Prior to moving away, he went to see a nursing scheduler, and notes that it helped his pain for ~10 years. After moving to the , he began having increased pain ~5 years ago, and saw his PCP, who gave him some anti-inflammatories, which again seemed to help long-term. Just recently, he has had a return of the pain, and it was suggested that he get an x-ray and try some skilled PT. Pts biggest complaints are pain in his anterior right shoulder, specifically when reaching upp overhead and then reaching back into more of an extension /external rotation, as well as when sleeping and rolling onto his right shoulder, it hurts for about five minutes, then it's fine. Pt also notes an occasional popping or snapping sound in his anterior shoulder. 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 Prior Treatments and Tests R shoulder x-ray: IMPRESSION: 1. No acute bony abnormality. 2. Mild lateral downsloping of the acromion may be associated with rotator cuff tearing. Consider further evaluation with MRI. per Rufino Zarate M.D. on 2022 Treatment Goals Patient/Caregiver Goals Decrease shoulder pain PT-OP-C Subjective Start: 10/25/22 16:49 Freq: Status: Active Protocol: Document 11/22/22 14:18 NBM (Rec: 11/22/22 15:33 NBM [id number]) OP-PT Subjective Patient Comments Patient Comments Pt reports overall improvement but still discomfort at times . He states R shoulder pain is 10% what it was - dull ache . He thinks the ionto patch helped but his shoulder was sore after he took it off - he thinks from the hands on. He uses Icy Hot cream for pain. He thinks the heart symptoms were from stress and strong coffee but says the Dr. says his heart is okay. PT-OP-F Manual Assessment Start: 10/25/22 16:49 Freq: Status: Active Protocol: Document 10/25/22 12:15 DCW (Rec: 10/25/22 17:23 DCW [id number]) Manual Assessments Soft Tissue Assessment Soft Tissue Mobility Assessment Point-specific tenderness 3/4: wincing and withdraw at right bicipital groove PT-OP-K Range of Motion Start: 10/25/22 16:49 Freq: Status: Active Protocol: Document 10/25/22 12:15 DCW (Rec: 10/25/22 17:23 DCW [id number]) Shoulder Goniometric Range of Motion Shoulder Right Active Testing Position Sitting Flexion 142 Extension 50 Abduction 138 External Rotation at 0 degrees Abduction 55 PT-OP-L Special Tests Start: 10/25/22 16:49 Freq: Status: Active Protocol: Document 10/25/22 12:15 DCW (Rec: 10/25/22 17:23 DCW [id number]) Special Tests Shoulder Special Tests Yergason's Biceps Test Results Positive Right Speed's Biceps Test Results Positive Right Passive ER Rotator Cuff Test Results Negative [place] Impingement Test Results Negative Grind Labrum Test Results Negative Empty Can Test Results Negative Drop Arm Rotator Cuff Test Results Negative Belly Press Test Results Negative Apprehension Test Test Results Negative AC Joint Compression Test Results Negative PT-OP-M Strength Start: 10/25/22 16:49 Freq: Status: Active Protocol: Document 10/25/22 12:15 DCW (Rec: 10/25/22 17:23 DCW [id number]) Shoulder Strength Shoulder Manual Muscle Testing Right Flexion 5 Normal Abduction (C5) 5 Normal Adduction 5 Normal External Rotation 4+ Good+ Internal Rotation 5 Normal Comments Pain with resisted ER Left Flexion 5 Normal Abduction (C5) 5 Normal Adduction 5 Normal External Rotation 5 Normal Internal Rotation 5 Normal PT-OP-Q Treatments Start: 10/25/22 16:49 Freq: Status: Active Protocol: Document 11/22/22 14:18 NBM (Rec: 11/22/22 15:33 NBM [id number]) Cardio Equipment Upper Body Ergometer (UBE) Duration (Minutes) 4 RPM 60 Seat Position 12 Height 2.5 Other 3min forward, 1 min backward Therapeutic Exercises Sitting Exercises Biceps curls Sitting Exercise Name Biceps curl sitting>standing Side right Resistance Green T-band Reps/Minutes x10 ea Comments standing added to HEP ER/IR Sitting Exercise Name 90/90 ER/IR holding weighted ball Side right Resistance 3.3 lb Red ball Reps/Minutes x10 Comments no pain but discomfort with fatigue Flexibar Sitting Exercise Name Sup/Pro /c flexibar Side bilateral Resistance Red Reps/Minutes x10 ea Comments cues for elbows close to body Pro/Supination Sitting Exercise Name Pronation/Supination Side right Resistance Hammer Reps/Minutes x10 Comments progressed handgrip to low on handle Standing Exercises Biceps curls Standing Exercise Name Normal Curl Side right Resistance 7# Reps/Minutes x10 Manual Therapy Treatment Soft Tissue Mobilization LH Biceps Body Location LH Biceps tendon Mobilization Type Cross-Friction,Strumming Intensity/Depth Superficial Body Position Hooklying Comments towel roll support under UE Joint Mobilizations GH Joint R GH Direction Inferior, posterior Grade II Body Position Hooklying Comments positive feedback response Self-Care/Home Management Treatment Education Patient Education Home Exercise Program,Pain Management Other Education HEP: standing resisted biceps curls - HO and green TB given. -Educated pt on option of ice for inflammation and pain management. PT-OP-R Modalities Start: 11/11/22 15:32 Freq: Status: Active Protocol: Document 11/22/22 14:18 NBM (Rec: 11/22/22 15:33 [facility] [id number]) Hot Pack/Cold Pack Treatment Cold Pack Location R shoulder Patient Position Hooklying Treatment Duration (minutes) 8 Patient Tolerance Good Comments cervical size PT-OP-T Assessment and Plan Start: 10/25/22 16:49 Freq: Status: Active Protocol: Document 11/22/22 14:18 NBM (Rec: 11/22/22 15:33 [facility] [id number]) Physical Therapy Assessment Goals Two Impairment Pt experiences pain in right shoulder when rolling onto right side Residential Goal (LTG) Pt to exhibit ability to lay on right shoulder with no pain in order to improve ability to sleep at night LTG Duration 12/06/22 One Impairment Pt does not have an appropriate home exercise program Short Term Goal (STG) Pt to be independent and compliant with an appropriate HEP 11/22/22: standing resisted biceps curls - HO and Green Tb given. STG Duration 11/24/22 Assessment Summary Assessment Dong demonstrates progress and tolerates activities today without pain, as with 7# x10 biceps curls progressed from 5 # last visit. He does experience pinpoint right shoulder discomfort in bicipital groove with fatigue with shoulder ER/IR and supination/pronation w/ flexibar, but emphasizes no pain. He requires occasional cues for posture with ex's. Positive feedback response to R shoulder manual therapy. Educated pt on option of ice for pain management. HEP: standing resisted biceps curls - HO and green TB given. Pt's translation jennifer used for pain description for Urdu<> [place]er. Physical Therapy Plan Frequency and Duration Frequency of Treatment 1x/Week Plan of Care Start Date 10/25/22 Plan of Care End Date 12/06/22 Therapeutic Interventions Therapeutic Interventions Home Exercise Program,Joint Mobilizations,Manual Therapy, Patient/Caregiver Education, Self-Care/Home Management,Soft Tissue Mobilization,Taping, Therapeutic Activities, Therapeutic Exercises Modalities Cold Pack/Ice Massage,Hot Packs,Infrared Therapy, Iontophoresis,Ultrasound Other Therapeutic Interventions Iontophoresis with Dexamethasone 4 mg/mL Next Visit Focus/Plan Next Note Type Treatment Note Next Visit Plan Taping, shoulder stabilization /strengthening, Ionto
--- NOTE | 2022-11-29 14:13 | PT.OTN ---
Current Diagnoses Pain in right shoulder (11/29/22) Unspecified disorder of synovium and tendon, unspecified shoulder (11/29/22) Bicipital tendinitis, right shoulder (11/29/22) Physical Therapy Treatment Note PT-OP-A Visit Information Start: 10/25/22 16:49 Freq: Status: Active Protocol: Document 11/29/22 13:30 DCW (Rec: 11/29/22 14:13 DCW [id number]) Out-Patient Physical Therapy Visit Information Visit Information Visit Type Treatment Note Visit Start Time 13:30 Visit Stop Time 14:15 Total Visit Minutes 45 Visit Number 4 Number of TYPE MAPPER Visits 0 Evaluation Information Evaluation Date 10/25/22 PT-OP-B Current Condition Start: 10/25/22 16:49 Freq: Status: Active Protocol: Document 10/25/22 12:15 DCW (Rec: 10/25/22 17:23 DCW [id number]) Current Condition History of Current Condition Onset Date ~17 year history Current Complaints Recurrent R shoulder pain History of Current Condition Pt is a 52 year old male presenting with a ~17 year history of right shoulder pain . Pt reports he is unsure of the initial injury, but seems to remember he used to do a lot of dynamic stretching where he would swing his arms in full circles up over his head and back into extension for 100+ repetitions. Notes that a week or so after doing this one time, he began to have right shoulder pain. Prior to moving away, he went to see a chief controller tower, and notes that it helped his pain for ~10 years. After moving to the , he began having increased pain ~5 years ago, and saw his PCP, who gave him some anti-inflammatories, which again seemed to help long-term. Just recently, he has had a return of the pain, and it was suggested that he get an x-ray and try some skilled PT. Pts biggest complaints are pain in his anterior right shoulder, specifically when reaching upp overhead and then reaching back into more of an extension /external rotation, as well as when sleeping and rolling onto his right shoulder, it hurts for about five minutes, then it's fine. Pt also notes an occasional popping or snapping sound in his anterior shoulder. 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 Prior Treatments and Tests R shoulder x-ray: IMPRESSION: 1. No acute bony abnormality. 2. Mild lateral downsloping of the acromion may be associated with rotator cuff tearing. Consider further evaluation with MRI. per Rufino Zarate M.D. on 2022 Treatment Goals Patient/Caregiver Goals Decrease shoulder pain PT-OP-C Subjective Start: 10/25/22 16:49 Freq: Status: Active Protocol: Document 11/29/22 13:30 DCW (Rec: 11/29/22 14:13 DCW [id number]) OP-PT Subjective Patient Comments Patient Comments Pt reports his shoulder feels much better, but is still sore . PT-OP-F Manual Assessment Start: 10/25/22 16:49 Freq: Status: Active Protocol: Document 10/25/22 12:15 DCW (Rec: 10/25/22 17:23 DCW [id number]) Manual Assessments Soft Tissue Assessment Soft Tissue Mobility Assessment Point-specific tenderness 3/4: wincing and withdraw at right bicipital groove PT-OP-K Range of Motion Start: 10/25/22 16:49 Freq: Status: Active Protocol: Document 10/25/22 12:15 DCW (Rec: 10/25/22 17:23 DCW [id number]) Shoulder Goniometric Range of Motion Shoulder Right Active Testing Position Sitting Flexion 142 Extension 50 Abduction 138 External Rotation at 0 degrees Abduction 55 PT-OP-L Special Tests Start: 10/25/22 16:49 Freq: Status: Active Protocol: Document 10/25/22 12:15 DCW (Rec: 10/25/22 17:23 DCW [id number]) Special Tests Shoulder Special Tests Yergason's Biceps Test Results Positive Right Speed's Biceps Test Results Positive Right Passive ER Rotator Cuff Test Results Negative [place] Impingement Test Results Negative Grind Labrum Test Results Negative Empty Can Test Results Negative Drop Arm Rotator Cuff Test Results Negative Belly Press Test Results Negative Apprehension Test Test Results Negative AC Joint Compression Test Results Negative PT-OP-M Strength Start: 10/25/22 16:49 Freq: Status: Active Protocol: Document 10/25/22 12:15 DCW (Rec: 10/25/22 17:23 DCW [id number]) Shoulder Strength Shoulder Manual Muscle Testing Right Flexion 5 Normal Abduction (C5) 5 Normal Adduction 5 Normal External Rotation 4+ Good+ Internal Rotation 5 Normal Comments Pain with resisted ER Left Flexion 5 Normal Abduction (C5) 5 Normal Adduction 5 Normal External Rotation 5 Normal Internal Rotation 5 Normal PT-OP-Q Treatments Start: 10/25/22 16:49 Freq: Status: Active Protocol: Document 11/29/22 13:30 DCW (Rec: 11/29/22 14:13 NYW [id number]) Cardio Equipment Upper Body Ergometer (UBE) Duration (Minutes) 4 RPM 60 Seat Position 10 Height 3 Other 2' fwd, 2' bkwd Therapeutic Exercises Sitting Exercises ER/IR Sitting Exercise Name 90/90 ER/IR holding weighted ball Side right Resistance 4.4 lb green ball Reps/Minutes x10 Comments no pain but discomfort with fatigue Flexibar Sitting Exercise Name Sup/Pro, Twisting Side bilateral Resistance Blue flexibar Reps/Minutes x10 ea Pro/Supination Sitting Exercise Name Pronation/Supination Side right Resistance Hammer /c 1# weight Reps/Minutes x10 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 Standing Exercises Horizontal Abduction Standing Exercise Name Horizontal Abduction Side bilateral Resistance Green t-band Shoulder Abduction Standing Exercise Name Abduction Side right Resistance Green t-band Shoulder Flexion Standing Exercise Name Flexion Side right Resistance Green t-band Biceps curls Standing Exercise Name Curl/Reverse Curl Side right Resistance 10# Reps/Minutes x10 Manual Therapy Treatment Soft Tissue Mobilization LH Biceps Body Location LH Biceps tendon Mobilization Type Cross-Friction,Strumming Intensity/Depth Superficial Body Position Sitting Joint Mobilizations GH Joint R GH Direction Inferior Grade III Body Position Sitting PT-OP-R Modalities Start: 11/11/22 15:32 Freq: Status: Active Protocol: Document 11/29/22 13:30 DCW (Rec: 11/29/22 14:13 [facility] [id number]) Iontophoresis Treatment Right Anterior Shoulder Treatment Medication Dexamethasone (-) Medication Amount (mL) (ml) 1 Medication Dosage 10 mg/mL Treatment Polarity Negative to Negative Active Electrode Placement Bicipital groove Treatment Duration (minutes) 3 PT-OP-T Assessment and Plan Start: 10/25/22 16:49 Freq: Status: Active Protocol: Document 11/29/22 13:30 DCW (Rec: 11/29/22 14:13 [facility] [id number]) Physical Therapy Assessment Goals Two Impairment Pt experiences pain in right shoulder when rolling onto right side 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 STG Duration 11/24/22 Assessment Summary Assessment Pt able to tolerate nearly all activities today with zero or minimal pain, noted some mild soreness with addition of horizontal abduction exercise. Showing good overall improvement. Physical Therapy Plan Frequency and Duration Frequency of Treatment 1x/Week Plan of Care Start Date 10/25/22 Plan of Care End Date 12/06/22 Therapeutic Interventions Therapeutic Interventions Home Exercise Program,Joint Mobilizations,Manual Therapy, Patient/Caregiver Education, Self-Care/Home Management,Soft Tissue Mobilization,Taping, Therapeutic Activities, Therapeutic Exercises Modalities Cold Pack/Ice Massage,Hot Packs,Infrared Therapy, Iontophoresis,Ultrasound Other Therapeutic Interventions Iontophoresis with Dexamethasone 4 mg/mL Next Visit Focus/Plan Next Note Type Treatment Note Next Visit Plan Taping, shoulder stabilization /strengthening, Ionto
--- NOTE | 2022-12-06 12:57 | PT.OTN ---
Current Diagnoses Pain in right shoulder (12/06/22) Unspecified disorder of synovium and tendon, unspecified shoulder (12/06/22) Bicipital tendinitis, right shoulder (12/06/22) Physical Therapy Treatment Note PT-OP-A Visit Information Start: 10/25/22 16:49 Freq: Status: Active Protocol: Document 12/06/22 12:15 DCW (Rec: 12/06/22 12:57 DCW [id number]) Out-Patient Physical Therapy Visit Information Visit Information Visit Type Discharge Summary Visit Start Time 12:15 Visit Stop Time 13:00 Total Visit Minutes 45 Visit Number 5 Number of AUTOMOTIVE SALES SPECIALIST Visits 0 Evaluation Information Evaluation Date 10/25/22 PT-OP-B Current Condition Start: 10/25/22 16:49 Freq: Status: Active Protocol: Document 10/25/22 12:15 DCW (Rec: 10/25/22 17:23 DCW [id number]) Current Condition History of Current Condition Onset Date ~17 year history Current Complaints Recurrent R shoulder pain History of Current Condition Pt is a 52 year old male presenting with a ~17 year history of right shoulder pain . Pt reports he is unsure of the initial injury, but seems to remember he used to do a lot of dynamic stretching where he would swing his arms in full circles up over his head and back into extension for 100+ repetitions. Notes that a week or so after doing this one time, he began to have right shoulder pain. Prior to moving away, he went to see a pot builder, and notes that it helped his pain for ~10 years. After moving to the , he began having increased pain ~5 years ago, and saw his PCP, who gave him some anti-inflammatories, which again seemed to help long-term. Just recently, he has had a return of the pain, and it was suggested that he get an x-ray and try some skilled PT. Pts biggest complaints are pain in his anterior right shoulder, specifically when reaching upp overhead and then reaching back into more of an extension /external rotation, as well as when sleeping and rolling onto his right shoulder, it hurts for about five minutes, then it's fine. Pt also notes an occasional popping or snapping sound in his anterior shoulder. 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 Prior Treatments and Tests R shoulder x-ray: IMPRESSION: 1. No acute bony abnormality. 2. Mild lateral downsloping of the acromion may be associated with rotator cuff tearing. Consider further evaluation with MRI. per Rufino Zarate M.D. on 2022 Treatment Goals Patient/Caregiver Goals Decrease shoulder pain PT-OP-C Subjective Start: 10/25/22 16:49 Freq: Status: Active Protocol: Document 12/06/22 12:15 DCW (Rec: 12/06/22 12:57 DCW [id number]) OP-PT Subjective Patient Comments Patient Comments Pt reports he feels a little bit of pain when reaching back to put his phone inh is back pocket, and when laying supine with his arm next to his body. PT-OP-F Manual Assessment Start: 10/25/22 16:49 Freq: Status: Active Protocol: Document 10/25/22 12:15 DCW (Rec: 10/25/22 17:23 DCW [id number]) Manual Assessments Soft Tissue Assessment Soft Tissue Mobility Assessment Point-specific tenderness 3/4: wincing and withdraw at right bicipital groove PT-OP-K Range of Motion Start: 10/25/22 16:49 Freq: Status: Active Protocol: Document 10/25/22 12:15 DCW (Rec: 10/25/22 17:23 DCW [id number]) Shoulder Goniometric Range of Motion Shoulder Right Active Testing Position Sitting Flexion 142 Extension 50 Abduction 138 External Rotation at 0 degrees Abduction 55 PT-OP-L Special Tests Start: 10/25/22 16:49 Freq: Status: Active Protocol: Document 10/25/22 12:15 DCW (Rec: 10/25/22 17:23 DCW [id number]) Special Tests Shoulder Special Tests Yergason's Biceps Test Results Positive Right Speed's Biceps Test Results Positive Right Passive ER Rotator Cuff Test Results Negative [place] Impingement Test Results Negative Grind Labrum Test Results Negative Empty Can Test Results Negative Drop Arm Rotator Cuff Test Results Negative Belly Press Test Results Negative Apprehension Test Test Results Negative AC Joint Compression Test Results Negative PT-OP-M Strength Start: 10/25/22 16:49 Freq: Status: Active Protocol: Document 10/25/22 12:15 DCW (Rec: 10/25/22 17:23 DCW [id number]) Shoulder Strength Shoulder Manual Muscle Testing Right Flexion 5 Normal Abduction (C5) 5 Normal Adduction 5 Normal External Rotation 4+ Good+ Internal Rotation 5 Normal Comments Pain with resisted ER Left Flexion 5 Normal Abduction (C5) 5 Normal Adduction 5 Normal External Rotation 5 Normal Internal Rotation 5 Normal PT-OP-Q Treatments Start: 10/25/22 16:49 Freq: Status: Active Protocol: Document 12/06/22 12:15 DCW (Rec: 12/06/22 12:57 DCW [id number]) Cardio Equipment Upper Body Ergometer (UBE) Duration (Minutes) 4 RPM 60 Seat Position 10 Height 3 Other 2' fwd, 2' bkwd Therapeutic Exercises Sitting Exercises ER/IR Sitting Exercise Name 90/90 ER/IR holding weighted ball Side right Resistance 4.4 lb green ball Reps/Minutes x10 Comments no pain but discomfort with fatigue Flexibar Sitting Exercise Name Sup/Pro, Twisting Side bilateral Resistance Blue flexibar Reps/Minutes x10 ea Pro/Supination Sitting Exercise Name Pronation/Supination Side right Resistance Hammer /c 2# weight Reps/Minutes x10 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 Standing Exercises Horizontal Abduction Standing Exercise Name Horizontal Abduction Side bilateral Resistance Blue t-band Shoulder Abduction Standing Exercise Name Abduction Side right Resistance Blue t-band Shoulder Flexion Standing Exercise Name Flexion Side right Resistance Blue t-band Biceps curls Standing Exercise Name Curl/Reverse Curl Side right Resistance 10# Reps/Minutes x10 Manual Therapy Treatment Soft Tissue Mobilization LH Biceps Body Location LH Biceps tendon Mobilization Type Cross-Friction,Strumming Intensity/Depth Superficial Body Position Sitting Joint Mobilizations GH Joint R GH Direction Inferior Grade III Body Position Sitting PT-OP-R Modalities Start: 11/11/22 15:32 Freq: Status: Active Protocol: Document 11/29/22 13:30 DCW (Rec: 11/29/22 14:13 DCW [id number]) Iontophoresis Treatment Right Anterior Shoulder Treatment Medication Dexamethasone (-) Medication Amount (mL) (ml) 1 Medication Dosage 10 mg/mL Treatment Polarity Negative to Negative Active Electrode Placement Bicipital groove Treatment Duration (minutes) 3 PT-OP-T Assessment and Plan Start: 10/25/22 16:49 Freq: Status: Active Protocol: Document 12/06/22 12:15 DCW (Rec: 12/06/22 12:57 DCW [id number]) Physical Therapy Assessment Goals Two Impairment Pt experiences pain in right shoulder when rolling onto right side Rooming House Inspector Goal (LTG) Pt to exhibit ability to lay on right shoulder with no pain in order to improve ability to sleep at night LTG Duration 12/06/22 One Impairment Pt does not have an appropriate home exercise program Short Term Goal (STG) Pt to be independent and compliant with an appropriate HEP 11/22/22: standing resisted biceps curls - HO and Green Tb given. STG Duration Met Assessment Summary Assessment Pt has largely met all goals, still a very very mild ache with arm extension. Pt agreeable to discharge at this time, feels everything has progressed very well. Appropriate for discharge at this time. Physical Therapy Plan Frequency and Duration Frequency of Treatment 1x/Week Plan of Care Start Date 10/25/22 Plan of Care End Date 12/06/22 Therapeutic Interventions Therapeutic Interventions Home Exercise Program,Joint Mobilizations,Manual Therapy, Patient/Caregiver Education, Self-Care/Home Management,Soft Tissue Mobilization,Taping, Therapeutic Activities, Therapeutic Exercises Modalities Cold Pack/Ice Massage,Hot Packs,Infrared Therapy, Iontophoresis,Ultrasound Other Therapeutic Interventions Iontophoresis with Dexamethasone 4 mg/mL Next Visit Focus/Plan Next Note Type Treatment Note Next Visit Plan Taping, shoulder stabilization /strengthening, Ionto
== END 2022-12-12 16:29 | disposition home or self-care (01) ==
LOC: PHYS 12:15
PROVIDERS: Family Provider Family Medicine; PCP Family Medicine; Referring Provider Family Medicine; Visit Provider Family Medicine
DX: M67.919 Unspecified disorder of synovium and tendon, unspecified shoulder (principal); M75.21 Bicipital tendinitis, right shoulder; M25.511 Pain in right shoulder
CPT/HCPCS: 97110; 97140; 97162

== ENCOUNTER → 2023-03-05 07:03 | Outpatient (CLI) | payer OTHER, SELFPAY ==
[2023-03-05 09:54] LABS: Cholesterol 121 mg/dL (140-199); HDL Cholesterol 28 mg/dL (40-60); LDL Cholesterol Calculated 51 mg/dL (<100); Triglycerides 212 mg/dL (35-150)
== END ==
PROVIDERS: Family Provider Family Medicine; PCP Family Medicine; Referring Provider Family Medicine; Visit Provider Family Medicine
DX: E78.2 Mixed hyperlipidemia (principal)
CPT/HCPCS: 36415; 80061

== ENCOUNTER → 2023-06-04 07:06 | Outpatient (CLI) | payer OTHER, SELFPAY ==
[2023-06-04 08:08] LABS: Cholesterol 127 mg/dL (140-199); HDL Cholesterol 31 mg/dL (40-60); LDL Cholesterol Calculated 58 mg/dL (<100); Triglycerides 192 mg/dL (35-150)
== END ==
PROVIDERS: Family Provider Family Medicine; PCP Family Medicine; Referring Provider Family Medicine; Visit Provider Family Medicine
DX: E78.2 Mixed hyperlipidemia (principal)
CPT/HCPCS: 36415; 80061

== ENCOUNTER → 2023-07-25 07:08 | Outpatient (CLI) | payer OTHER, SELFPAY ==
[2023-07-25 08:31] LABS: Cholesterol 120 mg/dL (140-199); HDL Cholesterol 33 mg/dL (40-60); LDL Cholesterol Calculated 59 mg/dL (<100); Triglycerides 138 mg/dL (35-150)
== END ==
LOC: LAB 07:08
PROVIDERS: Family Provider Family Medicine; PCP Family Medicine; Referring Provider Family Medicine; Visit Provider Family Medicine
DX: E78.2 Mixed hyperlipidemia (principal)
CPT/HCPCS: 36415; 80061

== ENCOUNTER → 2023-10-16 16:23 | Outpatient (CLI) | payer OTHER, SELFPAY | PROVIDERS: Family Provider Family Medicine; PCP Family Medicine; Visit Provider Nurse Practitioner Family | DX: Z51.89 Encounter for other specified aftercare (principal) | CPT/HCPCS: 87070; 87075; 87205 ==

== ENCOUNTER → 2023-10-20 07:26 | Outpatient (CLI) | payer OTHER, SELFPAY ==
[2023-10-20 07:59] LABS: Hemoglobin A1C% w Est Avg Glu 5.5 % (4.0-6.0)
[2023-10-20 08:35] LABS: Alanine Aminotransferase 23 IU/L (<50); Albumin 4.6 g/dL (3.5-5.0); Albumin Globulin Ratio 1.8 (1.0-2.8); Alkaline Phosphatase 68 U/L (38-126); Aspartate Aminotransferase 26 IU/L (17-59); Calcium 8.8 mg/dL (8.4-10.2); Carbon Dioxide 28 mmol/L (22-32); Chloride 109 mmol/L (98-107); Cholesterol 129 mg/dL (140-199); Globulin 2.6 g/dL (1.7-4.1); Glucose 106 mg/dL (70-100); HDL Cholesterol 35 mg/dL (40-60); LDL Cholesterol Calculated 63 mg/dL (<100); Potassium 4.2 mmol/L (3.4-5.1); Sodium 141 mmol/L (137-145); Total Protein 7.2 g/dL (6.3-8.2); Triglycerides 155 mg/dL (35-150)
[2023-10-20 08:37] LABS: BUN Creatinine Ratio 19.6 (6-22); Bilirubin Total 0.8 mg/dL (0.2-1.3); Blood Urea Nitrogen 18 mg/dL (9-20); Estimated Glomerular Filt Rate > 60 mL/min (>60); HEMOLYSIS 19 (0-50)
== END ==
PROVIDERS: Family Provider Family Medicine; PCP Family Medicine; Referring Provider Family Medicine; Visit Provider Family Medicine
DX: R73.9 Hyperglycemia, unspecified (principal); E78.2 Mixed hyperlipidemia
CPT/HCPCS: 36415; 80053; 80061; 83036

== ENCOUNTER → 2024-03-17 07:02 | Outpatient (CLI) | payer OTHER, SELFPAY ==
[2024-03-17 08:48] LABS: Alanine Aminotransferase 25 IU/L (<50); Albumin 4.8 g/dL (3.5-5.0); Albumin Globulin Ratio 1.7 (1.0-2.8); Alkaline Phosphatase 56 U/L (38-126); Aspartate Aminotransferase 26 IU/L (17-59); BUN Creatinine Ratio 12.1 (6-22); Bilirubin Total 0.6 mg/dL (0.2-1.3); Blood Urea Nitrogen 13 mg/dL (9-20); Calcium 9.6 mg/dL (8.4-10.2); Carbon Dioxide 28 mmol/L (22-32); Chloride 102 mmol/L (98-107); Cholesterol 166 mg/dL (140-199); Estimated Glomerular Filt Rate > 60 mL/min (>60); Globulin 2.9 g/dL (1.7-4.1); Glucose 94 mg/dL (70-100); HDL Cholesterol 31 mg/dL (40-60); HEMOLYSIS < 15 (0-50); LDL Cholesterol Calculated 102 mg/dL (<100); Potassium 4.3 mmol/L (3.4-5.1); Sodium 140 mmol/L (137-145); Total Protein 7.7 g/dL (6.3-8.2); Triglycerides 167 mg/dL (35-150)
== END ==
PROVIDERS: Family Provider Family Medicine; PCP Family Medicine; Referring Provider Family Medicine; Visit Provider Family Medicine
DX: E78.2 Mixed hyperlipidemia (principal); Z87.39 Personal history of other diseases of the musculoskeletal system and connective tissue; R73.9 Hyperglycemia, unspecified
CPT/HCPCS: 36415; 80053; 80061

== ENCOUNTER → 2024-03-26 07:50 | Outpatient (CLI) | payer OTHER, SELFPAY ==
[2024-03-29 11:10] LABS: Fecal Immunochemical Test Negative (Negative)
== END ==
PROVIDERS: Family Provider Family Medicine; PCP Family Medicine; Referring Provider Family Medicine; Visit Provider Family Medicine
DX: Z12.11 Encounter for screening for malignant neoplasm of colon (principal)
CPT/HCPCS: 82274

== ENCOUNTER → 2024-09-10 15:42 | Outpatient (CLI) | payer OTHER, SELFPAY ==
--- NOTE | 2024-09-10 15:44 | DI.RAD.S_ITS ---
PROCEDURE: XR THORACIC SPINE 2V INDICATIONS: mid back pain TECHNIQUE: 2 views of the thoracic spine were acquired. COMPARISON: [facility], , XR THORACIC SPINE 3V, 01/05/2022, 16:23. FINDINGS: Bones: No fractures or dislocations. No suspicious bony lesions. 12 pairs of ribs are noted, and appear intact where visualized. No acute compression fractures. Soft tissues: No paravertebral stripe thickening. IMPRESSION: No acute bony abnormality. Mild multilevel thoracic spondylosis involving the mid and lower thoracic spine. Dictated by: Jasmeet Lozano M.D. on 09/10/2024 at 23:57 Approved by: Jasmeet Lozano M.D. on 09/10/2024 at 23:58
== END ==
PROVIDERS: Family Provider Family Medicine; PCP Family Medicine; Referring Provider Family Medicine; Visit Provider Family Medicine
DX: M47.814 Spondylosis without myelopathy or radiculopathy, thoracic region (principal); M54.9 Dorsalgia, unspecified
CPT/HCPCS: 72070

== ENCOUNTER → 2024-09-14 07:06 | Outpatient (CLI) | payer OTHER, SELFPAY ==
[2024-09-14 08:26] LABS: Add Manual Diff / Slide Review NO; Basophils Absolute Auto 100 /uL (0-100); Basophils Percent Auto 1.3 % (0-2); Eosinophils Absolute Auto 100 /uL (0-450); Eosinophils Percent Auto 1.6 % (2-4); Hematocrit 43.3 % (41-53); Hemoglobin 14.9 g/dL (13.5-17.5); Lymphocytes Absolute Auto 2100 /uL (1100-4500); Lymphocytes Percent Auto 45.1 % (25-40); Mean Corpuscular HGB Conc 34.5 % (30-36); Mean Corpuscular Hemoglobin 29.1 PG (26-34); Mean Corpuscular Volume 84.3 fL (80-100); Monocytes Absolute Auto 400 /uL (0-900); Monocytes Percent Auto 7.6 % (3-14); Neutrophils Absolute Auto 2100 /uL (1500-7000); Neutrophils Percent Auto 44.4 % (50-75); Platelet Count 240 X10^3/uL (150-400); Red Blood Cell Count 5.14 X10^6/uL (4.5-5.9); Red Cell Distribution Width 13.1 % (11.6-14.8); White Blood Cell Count 4.7 X10^3/uL (4.5-11.0)
[2024-09-14 09:02] LABS: Alanine Aminotransferase 27 IU/L (<50); Albumin 4.8 g/dL (3.5-5.0); Albumin Globulin Ratio 1.8 (1.0-2.8); Alkaline Phosphatase 62 U/L (38-126); Aspartate Aminotransferase 28 IU/L (17-59); Bilirubin Total 0.8 mg/dL (0.2-1.3); Blood Urea Nitrogen 12 mg/dL (9-20); Calcium 9.5 mg/dL (8.4-10.2); Carbon Dioxide 28 mmol/L (22-32); Chloride 103 mmol/L (98-107); Cholesterol 200 mg/dL (140-199); Estimated Glomerular Filt Rate > 60 mL/min (>60); Globulin 2.7 g/dL (1.7-4.1); Glucose 92 mg/dL (70-99); HDL Cholesterol 31 mg/dL (40-60); HEMOLYSIS < 15 (0-50); LDL Cholesterol Calculated 103 mg/dL (<100); Potassium 4.6 mmol/L (3.4-5.1); Sodium 140 mmol/L (137-145); Total Protein 7.5 g/dL (6.3-8.2); Triglycerides 330 mg/dL (35-150)
[2024-09-14 09:23] LABS: TSH w/ Reflex to FT4 1.52 uIU/mL (0.47-4.68)
== END ==
PROVIDERS: Family Provider Family Medicine; PCP Family Medicine; Referring Provider Family Medicine; Visit Provider Family Medicine
DX: R42 Dizziness and giddiness (principal); E78.2 Mixed hyperlipidemia
CPT/HCPCS: 36415; 80053; 80061; 84443; 85025